=== PATIENT | male | born 1950 | race Caucasian/White ===

== ENCOUNTER → 2016-11-14 08:22 | Outpatient (CLI) | payer MEDICARE ==
[2013-11-20 09:04] VITALS: BMI 39.4
[~2016-11-14 08:22] MED LIST: ALDACTAZIDE 25/1 TAB PO; BAYER CHEWABLE81 MG PO; BETAPACE 80 MG80 MG PO; CARDIZEM CD180 MG PO; CARDURA8 MG PO; KEFLEX500 MG PO; LISINOPRIL10 MG PO; PLAVIX75 MG PO; PRINIVIL20 MG PO; XARELTO20 MG PO; ZOCOR20 MG PO
--- NOTE | 2016-11-23 12:47 | EC ---
PATIENT:WAYNE GUTIERREZ SR DATE OF SERVICE: 11/14/16 SEX: M MEDICAL RECORD: [id number] DATE OF : 52 LOCATION[facility] AGE OF PATIENT: 66 ADMISSION DATE: 11/14/16 REFERRING PHYSICIAN: INTERPRETING PHYSICIAN: TRISHA KAUR MD ECHOCARDIOGRAM REPORT ECHO CHARGES 4 ECHO COMPLETE CLINICAL DIAGNOSIS: CHF/CAD/AFIB/HTN/CHEST PAIN ECHOCARDIOGRAPHIC MEASUREMENTS (adult normal given) AC root (d.<3.7cm) 3.8 cm LV Septum d (<1.2 cm> 1.4 cm Valve Excursion 1.7 cm LV Septum (systole) 1.6 cm Left Atria (s.<4.0cm> 4.9 cm LVPW d(<1.2cm) 1.4 cm RV (d.<2.3cm) 5.1 cm LVPW (sytole) 1.75 cm LV diastole(<5.6CM) 5.8 cm MV E-F(>70mm/sec) cm LV systole 4.0 cm LVOT Diameter 1.8 cm MV exc.(>10mm) 1.8 cm Est.ejection fraction (50-75%) % Pericardial Effusion N DOPPLER: LVIT cm/sec A 56.0 cm/sec E 96.0 cm/sec LA cm/sec RVSP 40 mmHg LVOT 103 cm/sec AOP1/2T m/s Asc. Ao 151 cm/sec RVOT 92 cm/sec RA cm/sec PA 115 cm/sec AV Gradient Peak 9.10 mmHg AV Mean 5.44 mmHg AV Area 1.5 cm MV Gradient Peak 3.68 mmHg MV Mean 1.41 mmHg MV Area cm COMMENTS: Blunger Loader: Carola WINSTON Evp Sales: 4 Dr. Kaur TAPE# PACS DATE OF SERVICE: 11/14/2016 PROCEDURE: Transthoracic echocardiogram. FINDINGS: 1. The patient's left ventricle shows mild left ventricular hypertrophy. Inflow characteristics are normal. There are no obvious regional wall motion abnormalities. It is technically a difficult study, images were not real clear. 2. The right ventricle is significantly dilated, but appears to have normal function. ECHOCARDIOGRAM REPORT [id number] WAYNE GUTIERREZ SR 3. The aortic valve is sclerotic without any evidence of significant stenosis or significant regurgitation. 4. The mitral valve has mild mitral regurgitation. 5. The pulmonic valve is not well visualized. 6. The left atrium is severely dilated and in fact the patient's inflow characteristics are influenced by what appears possibly to be atrial flutter. 7. The tricuspid valve shows mild tricuspid regurgitation with an RVSP that is mildly elevated at 40 mmHg. 8. Right atrium is moderate to severely dilated. CONCLUSION: The patient has evidence of hypertensive heart disease with preserved LV systolic function elevations, pulmonary pressures in the mild category and evidence of dilatation of the right-sided structures. TRANSINT:[id number] Voice Confirmation ID: [id number] DOCUMENT ID: [id number] TRISHA KAUR MD at 1247 CC: [id number] DICTATION DATE: 11/14/16 1644 CLEAT LAYER: 11/14/16 2235 [facility] CLI 11/14/16 [facility] [address] [place] [address]
== END | disposition home or self-care (01) ==
LOC: D.ECHO 08:22
DX: I65.23 Occlusion and stenosis of bilateral carotid arteries (principal); I50.9 Heart failure, unspecified; I48.91 Unspecified atrial fibrillation; I10 Essential (primary) hypertension; R07.9 Chest pain, unspecified

== ENCOUNTER 2016-11-28 07:03 | Outpatient (CLI) | payer MEDICARE ==
--- NOTE | ~2016-11-28 | HEMODYNAMI ---
PATIENT:WAYNE GUTIERREZ SR MEDICAL RECORD: [id number] : 52 LOCATION:[facility] ADMISSION DATE: 11/28/16 Generatedon:11/28/201610:57 Patient name: WAYNE GUTIERREZ Patient #: [id number] SSN: : 1950 Date of study: 11/28/2016 Page: Of Hemodynamic Procedure Report Patient Data Patient Demographics Procedure consent was obtained First Name: WAYNE Gender: Male Last Name: BRENDA Suffix: [facility] Initial: A : 1950 Patient #: [id number] Age: 66 year(s) Race: Unknown Additional ID: [id number] Contact details [address]: [address] [place] [address] [place] State: [place] City: [place] Zip code: [address] Past Medical History Allergies: No known allergies Admission Admission Data Admission Date: 11/28/2016 Admission Time: 7:03 Admit Source: Other Lab Results Lab Result Date: 11/28/2016 Lab Result Time: 7:30 Biochemistry Name Units Result Min Max BUN mg/dl 21 --(----)-* 7 18 Creatinine mg/dl 1.2 --(---*)-- 0.6 1.3 CBC Name Units Result Min Max Hematocrit % 44.6 --(*---)-- 42 54 Hemoglobin g/dl 15.2 --(-*--)-- 13.5 17.5 Procedure Procedure Types Cath Procedure Diagnostic Procedure LHC LHC w/Coronaries Miscellaneous Procedures Moderate Sedation up to 45 minutes Procedure Description Procedure Date Procedure Date: 11/28/2016 Procedure Start Time: 10:08 Procedure End Time: 10:55 Procedure Staff Name Function James Jones MD Performing Physician Glendy Garcia RT Scrub Blade Wheeler RT Monitor Kim Ray RN Nurse Jose Miguel Avendaño RN Salvage Inspector [employer] Procedure Data Cath Procedure Fluoroscopy Diagnostic fluoroscopy Total fluoroscopy Time: time: 16.4 min 16.4 min Diagnostic fluoroscopy Total fluoroscopy dose: dose: 4237 mGy 4237 mGy Contrast Material Contrast Material Type Amount (ml) Isovue 300 280 Entry Location Entry Primary Successful Side Size Upsize Upsize Entry Closure Schumacher ccessful Closure Location (Fr) 1 (Fr) 2 (Fr) Remarks Device Remarks Radial Right 6 Fr Mechanical artery Short Compression Estimated blood loss: 10 ml Diagnostic catheters Device Type Used For End Catheter Placement Terumo 5Fr Ajith 110cm Procedure catheter Diagnostic Infinity 5Fr Procedure AR 2 MOD catheter Diagnostic Infinity 5Fr Procedure AR MOD Catheter Diagnostic Infinity 5Fr Procedure MPA-2 catheter Diagnostic Infinity 5Fr Procedure AL 1 catheter Diagnostic Infinity 5Fr Procedure Pigtail catheter Diagnostic Infinity 5Fr Procedure 3DRC catheter Procedure Complications No complications Procedure Medications Medication Administration Route Dosage Oxygen NC 2 l/min Lidocaine 2% added to field 20 Heparin Flush Bag added to field 2 bags (1000units/500ml NS) 0.9% NaCl I.V. 100 ml/hr Versed I.V. 2 mg Fentanyl I.V. 50 mcg Radial Cocktail I.A. 1 syringe (Verapomil 2mg/Nitro 400mcg/Heparin 1500units) 0.9% NaCl I.V. bolus 500 ml Solumedrol I.V. 125 mg Heparin Bolus I.V. 2000 units Heparin Bolus I.V. 3000 units Hemodynamics Rest HGB: 15.2 (g/dl) Heart Rate: 69 (bpm) Pressure Samples Time Site Value (mmHg) Purpose Heart Use Rate(bpm) 10:11 LV 90/-4,9 EDP 64 10:11 AO (59) Pullback 72 10:11 LV 77/5,9 Pullback 72 Gradients Valve Time Site 1 Site Mean SEP/DFP Peak To Heart Use 2 (mmHg) (sec/min) Peak Rate (mmHg) (bpm) Aortic 10:11 LV AO 4 9 72 77/5,9 (59) Calculations Valve P-P Mean Valve Index Valve Source Name Gradient Area Flow (cm2) Aortic 4 4 Snapshots Pre Cath Intra NCS Post Cath Vital Signs Time Heart Resp SPO2 etCO2 NIBP Rhythm Pain Sedation Rate (ipm) (%) (mmHg) (mmHg) Status Level (bpm) 9:54:37 65 17 100 37.1 130/77(88) A-Fib 0 (11) 10(A) , No pain 9:58:53 58 31 100 34.9 102/70(92) A-Fib 0 (11) 10(A) , No pain 10:03:03 59 13 100 37.1 114/83(96) A-Fib 0 (11) 10(A) , No pain 10:07:29 69 16 100 36.4 126/71(89) A-Fib 0 (11) 10(A) , No pain 10:11:49 72 24 95 40.9 94/53(75) A-Fib 0 (11) 10(A) , No pain 10:16:03 66 18 96 45.5 90/62(69) A-Fib 0 (11) 10(A) , No pain 10:20:15 67 16 97 46.9 101/67(78) A-Fib 0 (11) 10(A) , No pain 10:24:33 62 18 95 45.5 105/60(74) A-Fib 0 (11) 10(A) , No pain 10:28:53 64 18 98 37.1 106/59(85) A-Fib 0 (11) 10(A) , No pain 10:33:09 60 21 94 35.6 101/63(82) A-Fib 0 (11) 10(A) , No pain 10:37:23 68 20 96 39.4 110/69(82) A-Fib 0 (11) 10(A) , No pain 10:41:43 60 23 95 34.1 112/64(85) A-Fib 0 (11) 10(A) , No pain 10:46:03 59 19 96 44 112/63(80) A-Fib 0 (11) 10(A) , No pain 10:50:21 56 19 96 37.1 110/72(92) A-Fib 0 (11) 10(A) , No pain 10:54:36 60 17 98 37.9 116/81(93) A-Fib 0 (11) 10(A) , No pain Medications Time Medication Route Dose Verified Delivered Reason Note s Effectiveness by by 9:53:34 Oxygen NC 2 l/min James Buffie used for Jenny Ray ui programmer 9:53:44 Lidocaine 2% added 20ml James James for local to vial Jenny Jones MD anesthetic field 9:53:50 Heparin Flush added 2 bags James James used for Bag to Jenny Jones MD procedure (1000units/500ml field NS) 9:54:02 0.9% NaCl I.V. 100 James Buffie Per physician ml/hr Jenny Ray RN, MD 10:08:23 Versed I.V. 2 mg Jaems Buffie for sedation Jenny Ray RN, MD 10:08:31 Fentanyl I.V. 50 mcg James Buffie for sedation Jenny Ray RN, MD 10:09:35 Radial Cocktail I.A. 1 James James for (Verapomil syringe Jenny Jones MD vasodilation 2mg/Nitro MD 400mcg/Heparin 1500units) 10:14:13 0.9% NaCl I.V. 500 ml James Buffie Per physician bolus Jenny Ray RN, MD 10:22:25 Solumedrol I.V. 125 mg James Buffie Per physician pt Jenny Ray RN states MD feels hot, no itching or oral swelling noted. pt states hot natured. 10:37:36 Heparin Bolus I.V. 2000 James Buffie for veri fied units Jenny Ray RN anticoagulation with dr MD jones. 10:38:33 Heparin Bolus I.V. 3000 James Buffie for veri fied units Jenny Ray RN anticoagulation with dr MD jones. Procedure Log Time Note 9:15:11 Jose Miguel Avendaño RN sent for patient. Start room use. 9:43:13 Informed consent obtained and on chart 9:43:33 Admit Source: Other 9:43:57 Diagnostic Cath status Elective 9:44:18 Time tracking: Regular hours 9:44:22 Plan of Care:Hemodynamics will remain stable., Cardiac rhythm will remain stable., Comfort level will be maintained., Respiratory function will remain adequate., Patient/ family verbilizes understanding of procedure., Procedure tolerated without complication., Recovers from procedure without complications.. 9:44:38 Patient received from Pre/Post Procedure Room to CCL 2 Alert and oriented. Tansferred to table in Supine position. 9:44:39 Warm blankets applied, and edda hugger turned on for patient comfort. 9:44:40 Correct patient and procedure confirmed by team. 9:44:44 ECG and BP/O2 sat monitors applied to patient. 9:45:02 H&P Date Dictated: 11/22/2016 Within 30 days and on chart., H&P Addendum completed by physician on day of procedure. (MUST COMPLETE FOR ALL OUTPATIENTS). 9:45:03 Pre-procedure instructions explained to patient. 9:45:03 Pre-op teaching completed and patient verbalized understanding. 9:45:04 Family in waiting room. 9:45:06 Patient NPO since Midnight. 9:45:12 Patient allergic to No known allergies 9:53:20 Vital chart was started 9:53:34 Oxygen 2 l/min NC was administered by Kim Ray RN; used for procedure; 9:53:44 Lidocaine 2% 20ml vial added to field was administered by James Jones MD; for local anesthetic; 9:53:50 Heparin Flush Bag (1000units/500ml NS) 2 bags added to field was administered by James Jones MD; used for procedure; 9:54:02 0.9% NaCl 100 ml/hr I.V. was administered by Kim Ray RN; Per physician; 9:55:49 Baseline sample Acquired. 9:55:52 Rhythm: atrial fibrillation 9:55:53 Full Disclosure recording started 9:56:45 Is patient on blood thinner?Yes 9:56:47 ACC The patient was administered the following blood thiners within the last 24 hours: ACCPlavix 9:56:48 Patient diabetic? No. 9:56:52 Previous problem with sedation/anesthesia? No ? 9:56:52 Snore? Yes 9:56:53 Sleep apnea? Yes 9:56:54 Deviated septum? No 9:56:55 Opens mouth fully? Yes 9:56:56 Sticks out tongue? Yes 9:56:57 Airway obstruction? No ? 9:56:58 Dentures? No ? 9:57:00 Modified Sanju's test Ulnar < 7 seconds 9:57:02 Patient pain scale 0/10 ?. 9:57:14 IV patent on arrival in left wrist with 0.9% NaCl at [facility]. 9:57:42 Lab Result : BUN 21 mg/dl 9:57:42 Lab Result : Creatinine 1.2 mg/dl 9:57:42 Lab Result : Hemoglobin 15.2 g/dl 9:57:42 Lab Result : Hematocrit 44.6 % 9:57:44 Lab results completed and on chart. 9:57:46 Right Radial & Right Groin area was prepped with chlora-prep and draped in sterile fashion 9:57:47 Alarms reviewed by R. N. 9:57:47 Sharps counted by scrub and verified by R.N. 9:57:51 Use device set Radial Dx 9:57:52 Tegaderm 4 x 4 opened to sterile field. 9:57:52 MBrace Wrist Support opened to sterile field. 9:57:53 Acist Manifold opened to sterile field. 9:57:54 Acist Hand Control opened to sterile field. 9:57:55 Acist Syringe opened to sterile field. 9:57:55 Medline Cath Pack opened to sterile field. 9:57:55 Bag Decanter opened to sterile field. 9:57:56 Terumo 6Fr Slender Glidesheath opened to sterile field. 9:57:56 St Lester 260cm J .035 wire opened to sterile field. 10:03:43 Physician arrived 10:03:43 --------ALL STOP TIME OUT------ 10:03:44 Final Timeout: patient, procedure, and site verified with staff and physician. All members of the team are in agreement. 10:03:45 Right Radial & Right Groin site verified by team. 10:03:47 Physical assessment completed. ASA score P 2 - A patient with mild systemic disease as per James Jones MD. 10:03:50 Sedation plan: IV Moderate Sedation Versed, Fentanyl 10:03:53 Zero performed for pressure channel P1 10:06:35 Zero performed for pressure channel P1 10:08:22 Procedure started. 10:08:23 Versed 2 mg I.V. was administered by Kim Ray RN; for sedation; 10:08:27 Local anesthetic to right radial artery with Lidocaine 2% by James Jones MD.INITIAL ACCESS ONLY 10:08:31 Fentanyl 50 mcg I.V. was administered by Kim Ray RN; for sedation; 10:08:35 A 6 Fr Short sheath was inserted into the Right Radial artery 10:08:50 A Terumo 5Fr Ajith 110cm catheter was advanced over the wire and used for Procedure. 10:09:35 Radial Cocktail (Verapomil 2mg/Nitro 400mcg/Heparin 1500units) 1 syringe I.A. was administered by James Jones MD; for vasodilation; 10:11:38 LV gram done using ACKERMAN 10::40 Injector settings: Ml/sec: 5, Volume: 15, 10:11:59 EF : 55 % 10:13:40 LCA angiography performed. 10:14:13 0.9% NaCl 500 ml I.V. bolus was administered by Kim Ray RN; Per physician; 10:18:40 Catheter exchanged over wire. 10:18:43 A Diagnostic Infinity 5Fr AR 2 MOD catheter was advanced over the wire and used for Procedure. 10:22:25 Solumedrol 125 mg I.V. was administered by Kim Ray RN; Per physician; pt states feels hot, no itching or oral swelling noted. pt states hot natured. 10:27:50 A Diagnostic Infinity 5Fr AR MOD Catheter was advanced over the wire and used for Procedure. 10:32:00 Catheter exchanged over wire. 10:33:16 A Diagnostic Infinity 5Fr MPA-2 catheter was advanced over the wire and used for Procedure. 10:36:56 Catheter exchanged over wire. 10:37:16 A Diagnostic Infinity 5Fr AL 1 catheter was advanced over the wire and used for Procedure. 10:37:36 Heparin Bolus 2000 units I.V. was administered by Kim Ray RN; for anticoagulation; verified with dr jones. 10:38:33 Heparin Bolus 3000 units I.V. was administered by Kim Ray RN; for anticoagulation; verified with dr jones. 10:41:13 Catheter exchanged over wire. 10:41:25 A Diagnostic Infinity 5Fr Pigtail catheter was advanced over the wire and used for Procedure. 10:42:35 Aortic Root visualized 10:46:52 Catheter exchanged over wire. 10:47:37 A Diagnostic Infinity 5Fr 3DRC catheter was advanced over the wire and used for Procedure. 10:51:32 RCA angiography performed. 10:51:46 Catheter removed. 10:52:03 Terumo TR Band Large opened to sterile field. 10:52:10 Sheath removed intact; hemostasis achieved with Mechanical Compression to the Right Radial artery. 10:52:15 Procedure ended.(Physican Out) 10:53:39 Fluoroscopy time 16.40 minutes. 10:53:48 Flurop Dose total: 4237 10:53:48 Fluoroscopy dose: 4237 mGy 10:54:49 Contrast amount:Isovue 300 280ml. 10:54:50 Sharps counted by scrub and verified by R.N. 10:54:53 TR band inflated with 12cc of air. 10:54:56 Insertion/operative site no bleeding no hematoma. 10:54:58 Post Procedure Pulses reassessed and unchanged 10:54:59 Post-procedure physical assessment completed. ASA score P 2 - A patient with mild systemic disease as per James Jones MD. 10:55:01 Post procedure rhythm: unchanged. 10:55:04 Estimated blood loss: 10 ml 10:55:10 Post procedure instruction explained to patient.Patient verbalizes understanding. 10:55:10 Patient needs reinforcement of post procedure teaching. 10:55:20 Procedure type changed to Cath procedure, Diagnostic procedure, LHC, LHC w/Coronaries, Miscellaneous Procedures, Moderate Sedation up to 45 minutes 10:55:39 Procedure and supply charges have been captured, reviewed, submitted and are correct. 10:55:41 Procedure Complication : No complications 10:55:42 Vital chart was stopped 10:55:42 See physician's report for complete and final results. 10:55:44 Report given to Pre/Post Procedure Room. 10:55:45 Patient transfered to Pre/Post Procedure Room with Stretcher. 10:55:47 Procedure ended. 10:55:47 Full Disclosure recording stopped 10:55:51 End room use (Document Last) Device Usage Item Name Manufacture Quantity Catalog Hospital Part Current Minimal Lot# / Number Charge Number Stock Stock Serial# Code Tegaderm 4 1 1626W [id number] 698248 244389 5 x 4 MBrace Advanced 1 140-0250-00 053660 07986 075345 5 Wrist Vascular Support Dynamics Acist Acist 1 17618 622397 661982 250223 5 Manifold Medical Systems Inc Acist Hand Acist 1 83663 224875 224751 089636 5 Control Medical Systems Inc Acist Acist 1 48819 462420 207999 788471 20 Syringe Medical Systems Inc Medline Cardinal 1 [id number] 444393 92705 119096 5 Cath Pack Health Bag Microtek 1 2002S 5934079 89594 424815 5 Decanter Medical Inc. Terumo 6Fr Terumo 1 [id number] 895223 909470 865381 [address] St Lester 1 844196 982378 123421 552199 30 260cm J .035 wire Terumo 5Fr Terumo 1 17-3718 193242 855558 506110 5 Ajith 110cm catheter Diagnostic Cardinal 1 [id number] 307480 140371 287091 20 [facility] 5Fr AR 2 MOD catheter Diagnostic Cardinal 1 [id number] 680057 359546 045469 15 [facility] 5Fr AR MOD Catheter Diagnostic Cardinal 1 [id number] 151890 331416 459640 5 [facility] 5Fr MPA-2 catheter Diagnostic Cardinal 1 536409N 677866 217078 528416 15 [facility] 5Fr AL 1 catheter Diagnostic Cardinal 1 [id number] 445520 591494 371516 5 [facility] 5Fr Pigtail catheter Diagnostic Cardinal 1 [id number] 659169 942797 580252 9 [facility] 5Fr 3DRC catheter Terumo TR Terumo 1 [id number] 737452 711160 473946 40 Band Large Signature Audit [place] Stage Time Signature Unsigned Intra-Procedure 11/28/2016 Blade Wheeler 10:57:46 AM RT(R) Signatures Monitor : Blade Wheeler RT Signature : Date : Time : [place] [id number] [facility] [place] [address]
[~2016-11-28 07:03] MED LIST changes: -ALDACTAZIDE 25/1 TAB PO; -BAYER CHEWABLE81 MG PO; -KEFLEX500 MG PO; -PLAVIX75 MG PO; -PRINIVIL20 MG PO
[2016-11-28] MEDS ORDERED: PRINIVIL20 MG PO (07:22)
[2016-11-28] MEDS ORDERED: ALDACTAZIDE 25/1 TAB PO (07:23)
[2016-11-28 07:34] VITALS: BP 134/79
[2016-11-28 07:54] LABS: BASOPHILS 0.3 % (0-2); EOSINOPHILS 1.4 % (0-7); HEMATOCRIT 44.6 % (42.0-54.0); HEMOGLOBIN 15.2 g/dL (13.5-17.5); IMMATURE GRANULOCYTES 0.8 % (0-5); MCH 32.5 pg (26.0-34.0); MCHC 34.1 g/dL (31.0-37.0); MCV 95.3 fL (80.0-100.0); MONOCYTES 12.8 % (2-11); NEUTROPHILS 65.7 % (40-80); PLATELET COUNT 185 10x3/uL (130-400); RBC 4.68 10x6/uL (4.20-6.10); WBC 6.6 10x3/uL (4.8-10.8)
[2016-11-28 08:04] LABS: ANION GAP 13.4 mmol/L (8-16); CARBON DIOXIDE 27.3 mmol/L (21.0-32.0); CREATININE - SERUM 1.2 mg/dL (0.6-1.3); POTASSIUM - SERUM 4.7 mmol/L (3.5-5.1)
--- NOTE | 2016-11-28 11:08 | NUR ---
1108 RECEIVED PT FROM [facility]. PT IS ALERT. DENIES ANY C/O PAIN OR NAUSEA. ATRIAL FIBRILLATION WITH RATE 38-62. DR KAUR HERE AT BEDSIDE, TALKING WITH PT ABOUT FUTURE PACEMAKER PLACEMENT. RR IS EVEN AND UNLABORED ON O2 AT 2 LPM VIA NC. IV PATENT. TR BAND TO RIGHT WRIST IS CDI, NO BLEEDING OR HEMATOMA NOTED. FINGERS WARM, CAP REFILL IS BRISK, PULSES PALPABLE. NO FAMILY AT BEDSIDE, CALL LIGHT IN REACH.
--- NOTE | 2016-11-28 11:20 | NUR ---
1120 TR BAND CDI, NO BLEEDING OR HEMATOMA NOTED. FINGERS WARM, CAP REFILL IS BRISK. ATRIAL FIBRILLATION WITH RATE 42-58. PT DENIES ANY C/O CHEST DISCOMFORT. IV PATENT. OFFERED PO FLUIDS AND FOOD, PT REFUSES AT THIS TIME. PT DOES NOT HAVE A GIFT CONSULTANT HOME, STATES PLANNED TO DRIVE HIMSELF HOME AFTER PROCEDURE. [facility] WAS INSTRUCTED HE WOULD NEED A GIFT CONSULTANT AFTER PROCEDURE BUT [facility] DOES NOT HAVE ANY FAMILY OR FRIENDS HE CAN CALL. INSTRUCTED PT WE COULD NOT RELEASE HIM FOR DRIVING TODAY DUE TO THE MEDICATIONS HE HAS RECEIVED. PT STATES THAT IS 'THE ONLY OPTION, I HAVE NO WAY TO GET HOME TODAY.' PAGED DR KAUR WHO STATES PT CAN BE ADMITTED FOR OBSERVATION, FLUIDS AND RECHECK BMP IN THE AM.
--- NOTE | 2016-11-28 11:40 | NUR ---
1140 PT DENIES ANY C/O. TR BAND IS CDI, NO BLEEDING OR HEMATOMA NOTED. ATRIAL FIBRILLATION ON MONITOR, RATE 58. DENIES ANY C/O CHEST PAIN.
--- NOTE | 2016-11-28 12:07 | NUR ---
1200 PT DENIES ANY C/O PAIN OR NAUSEA. TR BAND IS CDI, NO BLEEDING OR HEMATOMA NOTED. A-FIB WITH RATE OF 52. PT NOW STATES HE WILL SIGN OUT AMA IF NEEDED BUT WILL NOT SPEND THE NIGHT IN THE HOSPITAL. STATES HE FEELS 'FINE TO DRIVE MYSELF HOME. NO REASON WHY I CANNOT DRIVE HOME.' REVIEWED AGAIN WITH PT THAT WE CANNOT RELEASE HIM TO DRIVE HIMSELF HOME HE IS UNDER THE INFLUENCE OF THE MEDICATIONS HE RECIEVED FOR THE PROCEDURE AND IS NOT SAFE FOR DRIVING. PT THEN STATES HE WILL TAKE A CAB HOME.
--- NOTE | 2016-11-28 12:21 | NUR ---
1210 DR KAUR PAGED AND INFORMED HIM PT REFUSES ADMISSION TO THE HOSPITAL AND PT WILL USE A CAB FOR TRANSPORTATION HOME TODAY. DR KAUR STATES PT CAN BE DC'D TO HOME AT 2 PM, PT TO FOLLOW UP WITH DR KAUR IN THE OFFICE ON SUNDAY.
--- NOTE | 2016-11-28 12:33 | NUR ---
1230 PT VOIDED 450 CC CLEAR YELLOW URINE USING URINAL. DENIES ANY C/O AT THIS TIME. TR BAND IS CDI, NO BLEEDING OR HEMATOMA NOTED. FINGERS WARM, CAP REFILL IS BRISK. IV PATENT. PT REFUSES PO FLUIDS/ SANDWICH AT THIS TIME.
--- NOTE | 2016-11-28 12:36 | NUR ---
1235 3 CC OF AIR REMOVED FROM TR BAND WITH NO BLEEDING OR HEMATOMA NOTED.
--- NOTE | 2016-11-28 13:20 | NUR ---
1320 ALL AIR HAS BEEN REMOVED FROM TR BAND WITH NO BLEEDING OR HEMATOMA NOTED. PT DENIES ANY C/O AT THIS TIME.
--- NOTE | 2016-11-28 13:50 | NUR ---
1350 2X2 AND TEGADERM REMAIN CDI TO RIGHT WRIST WITH NO BLEEDING OR HEMATOMA NOTED. WRIST IMMOBILIZER IN PLACE. IV DC'D WITH CATH INTACT. ASSISTED PT WITH DRESSING FOR DC TO HOME. DC INSTRUCTIONS HAVE BEEN REVIEWED WITH PT WHO VERBALIZES UNDERSTANDING.
--- NOTE | 2016-11-28 16:33 | NUR ---
1410 DRESSING TO RIGHT WRIST REMAINS CDI. PT DENIES ANY C/O PAIN OR NAUSEA. PT ESCORTED TO CAB VIA WC BY NURSE, REINFORCED INSTRUCTION OF NO DRIVING FOR 24 HOURS, PT STATES 'YES, I KNOW'. PT DC'D TO HOME VIA CAB.
== END 2016-11-28 14:10 | disposition home or self-care (01) ==
LOC: D.CATH 07:03
PROVIDERS: Internal Medicine Cardiovascular Disease
DX: I25.119 Atherosclerotic heart disease of native coronary artery with unspecified angina pectoris (principal); R07.9 Chest pain, unspecified; R53.83 Other fatigue; I42.9 Cardiomyopathy, unspecified; R94.39 Abnormal result of other cardiovascular function study; Z01.812 Encounter for preprocedural laboratory examination

== ENCOUNTER 2016-12-19 06:38 | Outpatient (CLI) | payer MEDICARE ==
--- NOTE | ~2016-12-19 | HEMODYNAMI ---
PATIENT:WAYNE GUTIERREZ SR MEDICAL RECORD: [id number] : 52 LOCATION:[facility] ADMISSION DATE: 12/19/16 Generatedon:12/19/20169:56 Patient name: WAYNE GUTIERREZ Patient #: [id number] : 1950 Date of study: 12/19/2016 Page: Of Hemodynamic Procedure Report Patient Data Patient Demographics Procedure consent was obtained First Name: WAYNE Gender: Male Last Name: BRENDA Suffix: [facility] Initial: A : 1950 Patient #: [id number] Age: 66 year(s) Race: SSN: [id number] Additional ID: [id number] Contact details Address: [address] [place] [address] [place] State: [place] City: [place] Zip code: [address] Past Medical History Allergies: No known allergies Admission Admission Data Admission Date: 12/19/2016 Admission Time: 6:38 Arrival Date: 12/19/2016 Arrival Time: 9:00 Admit Source: Other Insurance Payor: Medicare Height (in.): 72 BSA: 2.51 (m2) Height (cm.): 182.88 BMI: 39.74 (kg/m2) Weight (lbs.): 293 Weight (kg.): 132.9 Lab Results Lab Result Date: 12/19/2016 Lab Result Time: 0:00 Biochemistry Name Units Result Min Max BUN mg/dl 27 --(----)-* 7 18 Creatinine mg/dl 1.1 --(--*-)-- 0.6 1.3 CBC Name Units Result Min Max Hemoglobin g/dl 14.1 --(*---)-- 13.5 17.5 Procedure Procedure Types Cath Procedure PCI Procedure Coronary Stent Initial Miscellaneous Procedures Moderate Sedation up to 45 minutes Procedure Description Procedure Date Procedure Date: 12/19/2016 Procedure Start Time: 9:36 Procedure End Time: 9:53 Procedure Staff Name Function James Alvarado MD Performing Physician Kim Ray RN Nurse Glendy Garcia RT Monitor Hali Dunbar RT Scrub Procedure Data Cath Procedure Fluoroscopy Diagnostic fluoroscopy Total fluoroscopy Time: 3.7 time: 3.7 min min Diagnostic fluoroscopy Total fluoroscopy dose: dose: 1160 mGy 1160 mGy Contrast Material Contrast Material Type Amount (ml) Isovue 300 60 Entry Location Entry Primary Successful Side Size Upsize Upsize Entry Closure Succes sful Closure Location (Fr) 1 (Fr) 2 (Fr) Remarks Device Remarks Femoral Right 6 Fr Exoseal artery Short Estimated blood loss: 5 ml Procedure Complications No complications Procedure Medications Medication Administration Route Dosage Oxygen NC 2 l/min Lidocaine 2% added to field 20 Heparin Flush Bag added to field 2 bags (1000units/500ml NS) 0.9% NaCl I.V. 100 ml/hr Versed I.V. 2 mg Fentanyl I.V. 50 mcg Angiomax (bolus) I.V. 19 ml Angiomax Drip I.V. drip 44.5 ml/hr (250mg/50ml NS) (Standard) Angiomax Drip 44.5 ml/hr (250mg/50ml NS) (Standard) Hemodynamics Rest BSA: 2.51 (m2) HGB: 14.1 (g/dl) O2 Consumption: Estimated: 311.3 (ml/min) O2 Con sumption indexed: Estimated:124.02 (ml/min/m) Heart Rate: 90 (bpm) Snapshots Pre Cath Intra NCS Post Cath Vital Signs Time Heart Resp SPO2 etCO2 NIBP (mmHg) Rhythm Pain Sedation Rate (ipm) (%) (mmHg) Status Level (bpm) 9:03:39 88 22 99 0 120/82(91) A-Fib 0 (11) 10(A) , No pain 9:09:08 84 20 98 0 120/69(93) A-Fib 0 (11) 10(A) , No pain 9:13:18 89 16 99 36.8 119/78(90) A-Fib 0 (11) 10(A) , No pain 9:17:36 82 21 100 33.1 116/71(100) A-Fib 0 (11) 10(A) , No pain 9:21:54 81 23 99 32.3 120/74(93) A-Fib 0 (11) 10(A) , No pain 9:26:08 86 22 100 23.3 99/75(86) A-Fib 0 (11) 10(A) , No pain 9:30:25 85 24 100 27.1 107/57(80) A-Fib 0 (11) 10(A) , No pain 9:34:38 79 16 100 32.4 118/76(104) A-Fib 0 (11) 10(A) , No pain 9:38:57 93 24 100 26.3 110/75(86) A-Fib 0 (11) 10(A) , No pain 9:43:06 83 20 98 34.6 106/74(80) A-Fib 0 (11) 10(A) , No pain 9:47:23 83 26 100 32.4 111/62(82) A-Fib 0 (11) 10(A) , No pain 9:51:39 88 18 99 27.8 112/69(83) A-Fib 0 (11) 10(A) , No pain Medications Time Medication Route Dose Verified Delivered Reason Notes Effectiveness by by 9:04:15 Oxygen NC 2 James Buffie used for l/min Jenny Ray RN procedure 9:04:22 Lidocaine 2% added to field 20ml James James for local vial Jenny Alvarado MD anesthetic 9:04:28 Heparin Flush added to field 2 James James used for Bag bags Jenny Alvarado MD procedure (1000units/500ml NS) 9:04:37 0.9% NaCl I.V. 100 James Buffie Per physicia n ml/hr Jenny Ray RN, MD 9:37:40 Versed I.V. 2 mg James Buffie for sedation Jenny Ray RN, MD 9:37:46 Fentanyl I.V. 50 James Buffie for sedation mcg Jenny Ray RN, MD 9:41:30 Angiomax (bolus) I.V. 19 ml James Buffie for Jenny Ray RN anticoagulation 9:42:39 Angiomax Drip I.V. drip 44.5 James Buffie for (250mg/50ml NS) ml/hr Jenny Ray RN anticoagulation (Standard) 9:51:57 Angiomax Drip I.V. 44.5 James Buffie for (250mg/50ml NS) drip-discontinued ml/hr Jenny Ray RN anticoagulation (Standard) Procedure Log Time Note 8:52:52 Admit Source: Other 8:52:58 Patient Height : 72 inches 8:53:05 Patient Weight : 293 lbs 8:53:25 Diagnostic Cath status Elective 8:53:27 Kim Ray RN sent for patient. Start room use. 8:53:28 Time tracking: Regular hours 8:53:33 Plan of Care:Hemodynamics will remain stable., Cardiac rhythm will remain stable., Comfort level will be maintained., Respiratory function will remain adequate., Patient/ family verbilizes understanding of procedure., Procedure tolerated without complication., Recovers from procedure without complications.. 8:53:39 Patient received from Pre/Post Procedure Room to CCL 2 Alert and oriented. Tansferred to table in Supine position. 8:57:24 Warm blankets applied, and edda hugger turned on for patient comfort. 8:57:26 Correct patient and procedure confirmed by team. 8:57:27 Signed procedure consent form obtained from patient. 8:57:28 ECG and BP/O2 sat monitors applied to patient. 9:02:31 Vital chart was started 9:04:15 Oxygen 2 l/min NC was administered by Kim Ray RN; used for procedure; 9:04:22 Lidocaine 2% 20ml vial added to field was administered by James Alvarado MD; for local anesthetic; 9:04:28 Heparin Flush Bag (1000units/500ml NS) 2 bags added to field was administered by James Alvarado MD; used for procedure; 9:04:37 0.9% NaCl 100 ml/hr I.V. was administered by Kim Ray RN; Per physician; 9:06:01 Baseline sample Acquired. 9:06:09 Rhythm: sinus tachycardia 9:06:11 Full Disclosure recording started 9:07:23 H&P Date Dictated: 12/19/2016 Within 30 days and on chart., H&P Addendum completed by physician on day of procedure. (MUST COMPLETE FOR ALL OUTPATIENTS). 9:07:29 Pre-procedure instructions explained to patient. 9:07:30 Pre-op teaching completed and patient verbalized understanding. 9:07:32 Family unavailable. 9:07:33 Patient NPO since Midnight. 9:08:01 Is the patient allergic to Iodine/contrast media? No. 9:08:02 Was the patient premedicated? No 9:08:03 Is patient on blood thinner?Yes 9:08:06 ACC The patient was administered the following blood thiners within the last 24 hours: ACCPlavix 9:08:08 Patient diabetic? No. 9:08:11 Previous problem with sedation/anesthesia? No ? 9:08:13 Snore? Yes 9:08:14 Sleep apnea? Yes 9:08:14 Deviated septum? No 9:08:15 Opens mouth fully? Yes 9:08:16 Sticks out tongue? Yes 9:08:18 Airway obstruction? No ? 9:08:21 Dentures? No ? 9:08:25 Pre procedure: right dorsailis pedis pulse 2+ Normal; easily identifiable; not easily obliterated 9:08:27 Pre procedure: left dorsailis pedis pulse 2+ Normal; easily identifiable; not easily obliterated 9:08:38 Patient pain scale 0/10 ?. 9:08:46 IV patent on arrival in left forearm with 0.45%NaCl at [facility]. 9:11:45 Lab Result : BUN 27 mg/dl 9:11:45 Lab Result : Hemoglobin 14.1 g/dl 9:11:45 Lab Result : Creatinine 1.1 mg/dl 9:11:49 Lab results completed and on chart. 9:11:53 Right groin area was prepped with chlora-prep and draped in sterile fashion 9:11:53 Alarms reviewed by R. N. 9:11:54 Sharps counted by scrub and verified by R.N. 9:11:55 Physician arrived 9:11:55 Final Timeout: patient, procedure, and site verified with staff and physician. All members of the team are in agreement. 9:11:56 --------ALL STOP TIME OUT------ 9:11:58 Right groin site verified by team. 9:12:01 Physical assessment completed. ASA score P 2 - A patient with mild systemic disease as per James Alvarado MD. 9:12:05 Sedation plan: IV Moderate Sedation Versed, Fentanyl 9:14:01 Use device set Femoral PCI 9:14:02 Acist Syringe opened to sterile field. 9:14:03 Acist Hand Control opened to sterile field. 9:14:03 Bag Decanter opened to sterile field. 9:14:03 Medline Cath Pack opened to sterile field. 9:14:04 Terumo 6Fr Hereford Sheath opened to sterile field. 9:14:04 St Lester 260cm J .035 wire opened to sterile field. 9:14:05 Merit BasixCompak Inflation Kit opened to sterile field. 9:14:05 Acist Manifold opened to sterile field. 9:14:06 Tegaderm 4 x 4 opened to sterile field. 9:15:32 Arrival Date: 12/19/2016 9:00:00 AM 9:15:39 Insurance Payor : Medicare 9:25:52 Zero performed for pressure channel P1 9:33:30 Procedure started. 9:36:25 Local anesthetic to right femoral artery with Lidocaine 2% by James Alvarado MD.INITIAL ACCESS ONLY 9:36:34 A 6 Fr Short sheath was inserted into the Right Femoral artery 9:37:33 Pownal Sci Runway 6Fr ART 4.0 SH guide catheter opened to sterile field. 9:37:40 Versed 2 mg I.V. was administered by Kim Ray RN; for sedation; 9:37:46 Fentanyl 50 mcg I.V. was administered by Kim Ray RN; for sedation; 9:37:51 Pownal Sci PT Graphix J 182cm 0.014 guide wire opened to sterile field. 9:38:07 6 Fr art 4 guide catheter was inserted over the wire 9:39:47 pt graphix wire advanced. 9:40:01 Copilot Bleedback Control Valve opened to sterile field. 9:41:30 Angiomax (bolus) 19 ml I.V. was administered by Kim Ray RN; for anticoagulation; 9:41:48 Wire advanced across lesion. 9:42:39 Angiomax Drip (250mg/50ml NS) (Standard) 44.5 ml/hr I.V. drip was administered by Kim Ray RN; for anticoagulation; 9:48:46 Inflation Number: 1 A Marlborough RX 2.5 x 22 stent was prepped and advanced across the R PDA. The stent was deployed at 16 TAPAN for 0:10 (min:sec). 9:50:35 Stent catheter was removed intact over wire. 9:50:36 Wire removed. 9:50:36 Guide catheter removed. 9:50:44 Cordis 6Fr Exoseal opened to sterile field. 9:50:54 Sheath removed intact; hemostasis achieved with Exoseal to the Right Femoral artery. 9:50:55 Procedure ended.(Physican Out) 9:51:57 Angiomax Drip (250mg/50ml NS) (Standard) 44.5 ml/hr I.V. drip-discontinued was administered by Kim Ray RN; for anticoagulation; 9:52:04 Fluoroscopy time 03.70 minutes. 9:52:20 Fluoroscopy dose: 1160 mGy 9:52:20 Flurop Dose total: 1160 9:52:48 Contrast amount:Isovue 300 60ml. 9:52:50 Sharps counted by scrub and verified by R.N. 9:52:51 Insertion/operative site no bleeding no hematoma. 9:52:53 Post-op/insertion site Right Femoral artery dressed using a 4 x 4 and Tegaderm. 9:52:57 Post right femoral artery:stable 9:52:59 Post Procedure Pulses reassessed and unchanged 9:53:02 Post procedure rhythm: unchanged. 9:53:04 Estimated blood loss: 5 ml 9:53:06 Post procedure instruction explained to patient.Patient verbalizes understanding. 9:53:07 Patient needs reinforcement of post procedure teaching. 9:53:18 Procedure type changed to Cath procedure, PCI procedure, Coronary Stent Initial, Miscellaneous Procedures, Moderate Sedation up to 45 minutes 9:53:19 Procedure and supply charges have been captured, reviewed, submitted and are correct. 9:53:23 Procedure Complication : No complications 9:53:26 Vital chart was stopped 9:53:27 See physician's report for complete and final results. 9:53:35 Report given to Pre/Post Procedure Room. 9:53:39 Patient transfered to Pre/Post Procedure Room with Stretcher. 9:53:41 Procedure ended. 9:53:41 Full Disclosure recording stopped 9:53:48 ACC-PCI Only Patient was given prescriptions, or instructed by James Alvarado MD to start/continue the following medications upon discharge: Plavix 9:53:50 End room use (Document Last) Intervention Summary Intervention Notes Time ActionType Lesion and Equipment Action# Pressure Duration Attributes Used 9:48:46 Place stent R PDA Marlborough RX 1 16 00:10 2.5 x 22 stent Device Usage Item Name Manufacture Quantity Catalog Number Hospital Part Current Mini [facility] Lot# / Charge Number Stock Stock Serial# Code Acist Acist 1 31929 213131 874805 405364 20 Syringe Medical Systems Inc Acist Hand Acist 1 66929 334633 207348 027344 5 Control Medical Systems Inc Bag Microtek 1 2002S 757866 74291 780267 5 Decanter Medical Inc. Medline Cardinal 1 [id number] 885727 86830 461315 5 Cath Pack Health Terumo 6Fr Terumo 1 [id number] 234994 070969 235032 [address] St Lester 1 111593 951477 850740 292158 30 260cm J .035 wire Merit Merit 1 [id number] 094981 710770 703303 15 BasixCompak Medical Inflation Kit Acist Acist 1 87369 403624 571819 640093 5 Manifold Medical Systems Inc Tegaderm 4 3M 1 1626W 892876 505182 521566 5 x 4 Pownal Sci Pownal 1 [id number] 309422 510068 [address] 6[address] Scientific ART 4.0 SH guide catheter Pownal Sci Pownal 1 [id number] 343402 031468 681347 5 PT Graphix Scientific J 182cm 0.014 guide wire Copilot Saunders 1 [id number] 115787 452332 658937 5 Bleedback Vascular Control Valve Jd RX 2.5 Medtronic 1 [id number] 680607 1877938 988098 5 [id number] x 22 stent Cordis 6Fr Cardinal 1 EX600 086283 221314 [id number] [address] [place] [address] Signature Audit [place] Stage Time Signature Unsigned Intra-Procedure 12/19/2016 Glendy Garcia 9:56:32 AM RT(R) Signatures Monitor : Glendy Garcia RT Signature : Date : Time : [place] [address] [place] [address]
[~2016-12-19 06:38] MED LIST changes: +ALDACTAZIDE 25/1 TAB PO; +PRINIVIL20 MG PO
[2016-12-19] MEDS ORDERED: BAYER CHEWABLE81 MG PO (07:10)
[2016-12-19 07:16] VITALS: BP 114/74; BMI 38.0
[2016-12-19 07:32] LABS: BASOPHILS 0.4 % (0-2); EOSINOPHILS 1.1 % (0-7); HEMATOCRIT 41.2 % (42.0-54.0); HEMOGLOBIN 14.1 g/dL (13.5-17.5); IMMATURE GRANULOCYTES 0.4 % (0-5); LYMPHOCYTES 20.4 % (15-50); MCH 32.3 pg (26.0-34.0); MCHC 34.2 g/dL (31.0-37.0); MCV 94.5 fL (80.0-100.0); MEAN PLATELET VOLUME 10.6 fL (7.4-10.4); MONOCYTES 14.5 % (2-11); NEUTROPHILS 63.2 % (40-80); PLATELET COUNT 175 10x3/uL (130-400); RBC 4.36 10x6/uL (4.20-6.10); RDW 12.5 % (11.5-14.5); WBC 7.2 10x3/uL (4.8-10.8)
[2016-12-19 07:50] LABS: ANION GAP 15.6 mmol/L (8-16); CALCIUM 9.3 mg/dL (8.5-10.1); CARBON DIOXIDE 24.5 mmol/L (21.0-32.0); CREATININE - SERUM 1.1 mg/dL (0.6-1.3); POTASSIUM - SERUM 5.1 mmol/L (3.5-5.1)
--- NOTE | 2016-12-19 10:17 | NUR ---
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 INSTRUCTED PATIENT TO KEEP HEAD FLAT ON PILLOW WITH RLE STRAIGHT.
--- NOTE | 2016-12-19 10:39 | NUR ---
VSS WITH CHEST PAIN DENIED NO DISTRESS NOTED AT THIS TIME. 6 FR EXOSEAL R/GROIN CDI NO BLEEDING NO HEAMTOMA NOTED
--- NOTE | 2016-12-19 10:54 | NUR ---
R/GROIN CDI NO BLEEDING NO HEMATOMA NOTED. VSS WITH NEEDS DENIED
--- NOTE | 2016-12-19 11:11 | NUR ---
RESTING QUIETLY NO DISTRESS NOTED NO CHANGE IN ASSESSMENT
--- NOTE | 2016-12-19 11:44 | NUR ---
R/GROIN CDI NO BLEEDING NOTED. PATIENT IN A FIB AT 86 WITH CHEST PAIN DENIED. VOIDS 400 CC URINE TO COLLECTON
--- NOTE | 2016-12-19 12:30 | NUR ---
1230 VSS WITH CHEST PAIN DENIED. R/GROIN CDI NO BLEEDING NOTED 1300 REPOSITIONED FOR COMFORT WITH PILLOW WITH SUPPORT BACK
--- NOTE | 2016-12-19 13:34 | NUR ---
REPOSITIONED TO SITTING WITH HOB UP 30 DEGREES FOR COMFORT. R/GROIN CDI NO BLEEDING NO HEMATOMA NOTED. VSS
--- NOTE | 2016-12-19 14:07 | NUR ---
RESTING QUIETLY WITH EYES CLOSED. NO DISTRESS NOTED R/GROIN REMAINS CDI NO BLEEDING NO HEMATOMA NOTED
--- NOTE | 2016-12-19 14:48 | NUR ---
PATIENT CONTINUES TO SLEEP WITH NO DISTRESS NOTED. VSS
--- NOTE | 2016-12-19 15:40 | NUR ---
BED REST COMPLETE WITH PATIENT REPOSITIONED TO SITTING WITH HOB UP 30 DEGREES. R/GROIN CDI NO BLEEDING NO HEMATOMA NOTED.
--- NOTE | 2016-12-19 16:45 | NUR ---
REPORT CALLED TO [facility] FOR TRANSPORT TO ROOM 2122
--- NOTE | 2016-12-19 17:01 | NUR ---
RECIVED TO ROOM 2125. PER WC FROM POST CATH. ADMIT ASSESSMENT PER RN. RT [facility] C/D
--- NOTE | 2016-12-19 17:03 | NUR ---
TRANSFER FROM [facility] BY W/C. CALL LIGHT IN REACH. WILL CONT. PLAN OF CARE.
--- NOTE | 2016-12-19 17:28 | NUR ---
WITHOUT CHANGES OR DISTRESS NOTED AT THIS TIME. DENIES NEEDS.
[2016-12-19 18:09] VITALS: BP 120/70; BMI 38.0
[2016-12-19 20:00] VITALS: BP 124/74
--- NOTE | 2016-12-19 21:40 | NUR ---
PT RESTING COMFORTABLY, EASILY ROUSABLE TO VERBAL STIMULI, DENIES ANY NEEDS. PT'S RIGHT GROIN HAS A DRESSING STILL INTACT, CLEAN AND DRY, NO EVIDENCE OF HEMATOMA AT THIS TIME, INSERTION SITE WARM AND SOFT. PEDAL PULSES INTACT, BLE WARM, COLOR WNL. PT STATES HE HAS CHRONIC A-FIB AND WAS TOLD ONCE HE NEEDED A PACEMAKER, BUT HAS NOT RECEIVED ONE. WILL CONTINUE TO MONITOR PT CLOSELY. BED LOW, CALL LIGHT IN REACH, SIDE RAILS X 2, HOB 20 DEGREES AT THIS TIME.
[2016-12-19 23:45] VITALS: BP 133/71
[2016-12-20 04:00] VITALS: BP 125/65
--- NOTE | 2016-12-20 05:58 | NUR ---
PT RESTING COMFORTABLY, NO NEEDS. CONTINUE TO MONITOR CLOSELY.
[2016-12-20] MEDS ORDERED: PLAVIX75 MG PO (07:38)
--- NOTE | 2016-12-20 07:50 | NUR ---
ASSESSMENT DONE. DENIES NEEDS.
[2016-12-20 08:00] VITALS: BP 107/64
--- NOTE | 2016-12-20 08:36 | NUR ---
RESTS IN BED WITHOUT NEEDS VOICED. CALL LIGHT IN REACH. WILL CONT. PLAN OF CARE.
--- NOTE | 2016-12-20 10:20 | NUR ---
DC GIVEN TO PT
--- NOTE | 2016-12-20 10:32 | NUR ---
DC HOME PER PERSONAL CAR
== END 2016-12-20 10:33 | disposition home or self-care (01) ==
LOC: D.CATH 06:38 → D.M2 16:46 → D.CATH 12-20 10:33
PROVIDERS: Internal Medicine Cardiovascular Disease
DX: I25.119 Atherosclerotic heart disease of native coronary artery with unspecified angina pectoris (principal); I48.91 Unspecified atrial fibrillation; Z79.82 Long term (current) use of aspirin; Z79.899 Other long term (current) drug therapy; Z01.812 Encounter for preprocedural laboratory examination

== ENCOUNTER 2017-01-26 07:32 | Outpatient (CLI) | payer MEDICARE ==
[~2017-01-26] VITALS: Ht 182.9 cm; Wt 127.0 kg
--- NOTE | ~2017-01-26 | HEMODYNAMI ---
PATIENT:WAYNE GUTIERREZ SR MEDICAL RECORD: [id number] : 52 LOCATION:[facility] ADMISSION DATE: 01/26/17 Generatedon:01/26/20179:31 Patient name: WAYNE GUTIERREZ Patient #: [id number] : 1950 Date of study: 01/26/2017 Page: Of Hemodynamic Procedure Report Patient Data Patient Demographics Procedure consent was obtained First Name: WAYNE Gender: Male Last Name: BRENDA Suffix: [facility] Initial: A : 1950 Patient #: [id number] Age: 66 year(s) Race: SSN: [id number] Additional ID: [id number] Contact details [address]: [address] [place] [address] [place] State: [place] City: [place] Zip code: [address] Past Medical History Allergies: No known allergies Admission Admission Data Admission Date: 01/26/2017 Admission Time: 7:32 Lab Results Lab Result Date: 01/26/2017 Lab Result Time: 7:40 Biochemistry Name Units Result Min Max BUN mg/dl 20 --(----)*- 7 18 Creatinine mg/dl 1.2 --(---*)-- 0.6 1.3 CBC Name Units Result Min Max Hematocrit % 42 --(*---)-- 42 54 Hemoglobin g/dl 14.1 --(*---)-- 13.5 17.5 Procedure Procedure Types Cath Procedure Diagnostic Procedure PPM/ICD PPM Dual Implant Miscellaneous Procedures Moderate Sedation up to 30 minutes Procedure Description Procedure Date Procedure Date: 01/26/2017 Procedure Start Time: 8:50 Procedure End Time: 9:29 Procedure Staff Name Function James Alvarado MD Performing Physician Kim Ray RN Nurse Eleanor Alvarado RT Scrub Blade Wheeler RT Monitor Procedure Data Cath Procedure Fluoroscopy Diagnostic fluoroscopy Total fluoroscopy Time: 3.9 time: 3.9 min min Diagnostic fluoroscopy Total fluoroscopy dose: dose: 150.14 mGy 150.14 mGy Contrast Material Contrast Material Type Amount (ml) Isovue 300 10 Estimated blood loss: 5 ml Procedure Complications No complications Procedure Medications Medication Administration Route Dosage 0.9% NaCl I.V. ml/hr Lidocaine 1% added to field 20 Ancef (1Gm/50ml NS) I.V.P.B 1 g Versed I.V. 2 mg Fentanyl I.V. 50 mcg Versed I.V. 2 mg Ancef Irrigation Topical 1 g (1gm/500ml NS) Hemodynamics Rest HGB: 14.1 (g/dl) Heart Rate: 86 (bpm) Snapshots Pre Cath Intra NCS Post Cath Vital Signs Time Heart Resp SPO2 etCO2 NIBP (mmHg) Rhythm Pain Sedation Rate (ipm) (%) (mmHg) Status Level (bpm) 8:29:39 89 15 98 0 123/81(102) A-Fib 0 (11) 10(A) , No pain 8:34:17 83 17 98 0 125/80(98) A-Fib 0 (11) 10(A) , No pain 8:38:49 92 17 98 0 114/85(98) A-Fib 0 (11) 10(A) , No pain 8:43:22 83 25 96 0 103/70(86) A-Fib 0 (11) 10(A) , No pain 8:47:48 81 18 95 0 106/77(91) A-Fib 0 (11) 10(A) , No pain 8:52:13 78 18 96 0 124/86(109) A-Fib 0 (11) 10(A) , No pain 8:56:49 91 24 94 0 121/82(91) A-Fib 0 (11) 10(A) , No pain 9:01:30 86 25 92 0 114/65(90) A-Fib 0 (11) 10(A) , No pain 9:05:58 98 22 94 0 126/80(94) A-Fib 0 (11) 10(A) , No pain 9:10:34 82 22 96 0 105/76(97) A-Fib 0 (11) 10(A) , No pain 9:14:57 86 16 97 0 117/82(95) NSR 0 (11) 10(A) , No pain 9:19:27 86 23 95 0 121/76(90) NSR 0 (11) 10(A) , No pain 9:23:59 79 21 98 0 115/75(95) NSR 0 (11) 10(A) , No pain 9:28:26 73 17 97 0 113/76(92) NSR 0 (11) 10(A) , No pain Medications Time Medication Route Dose Verified Delivered Reason Notes Effectiven ess by by 8:23:57 0.9% NaCl I.V. ml/hr James Buffie used for Jenny Ray drivematic machine operator 8:24:51 Lidocaine added 20ml James James used for 1% to vial Jenny Alvarado MD procedure field *2 8:26:23 Ancef I.V.P.B 1 g James Buffie Per (1Gm/50ml Jenny Ray RN protocol NS) 8:50:13 Versed I.V. 2 mg James Buffie for Jenny Ray RN sedation 8:50:24 Fentanyl I.V. 50 James Buffie for mcg Jenny Ray RN sedation 8:53:44 Versed I.V. 2 mg James Buffie for Jenny Ray RN sedation 8:54:09 Ancef Topical 1 g James Buffie used for Irrigation Jenny Ray drivematic machine operator (1gm/500ml NS) Procedure Log Time Note 7:58:33 Time tracking: Regular hours 7:58:37 Plan of Care:Hemodynamics will remain stable., Cardiac rhythm will remain stable., Comfort level will be maintained., Respiratory function will remain adequate., Patient/ family verbilizes understanding of procedure., Procedure tolerated without complication., Recovers from procedure without complications.. 8:15:35 Kim Ray RN sent for patient. Start room use. 8:23:57 0.9% NaCl ml/hr I.V. was administered by Kim Ray RN; used for procedure; 8:24:51 Lidocaine 1% 20ml vial *2 added to field was administered by James Alvarado MD; used for procedure; 8:25:43 Patient received from Pre/Post Procedure Room to CCL 3 Alert and oriented. Tansferred to table in Supine position. 8:25:48 Warm blankets applied, and edda hugger turned on for patient comfort. 8:25:49 Correct patient and procedure confirmed by team. 8:25:54 Signed procedure consent form obtained from patient. 8:25:55 ECG and BP/O2 sat monitors applied to patient. 8:26:04 H&P Date Dictated: 01/22/2017 Within 30 days and on chart., H&P Addendum completed by physician on day of procedure. (MUST COMPLETE FOR ALL OUTPATIENTS). 8:26:06 Pre-procedure instructions explained to patient. 8:26:06 Pre-op teaching completed and patient verbalized understanding. 8:26:08 Family in waiting room. 8:26:09 Patient NPO since Midnight. 8:26:18 Patient allergic to No known allergies 8:26:23 Ancef (1Gm/50ml NS) 1 g I.V.P.B was administered by Kim Ray RN; Per protocol; 8:26:24 Is the patient allergic to Iodine/contrast media? No. 8:27:14 Is patient on blood thinner?Yes 8:27:20 ACC The patient was administered the following blood thiners within the last 24 hours: ACCPlavix 8:27:56 Vital chart was started 8:28:00 Baseline sample Acquired. 8:28:07 Rhythm: atrial fibrillation 8:30:46 Patient diabetic? No. 8:30:48 Previous problem with sedation/anesthesia? No ? 8:30:49 Snore? Yes 8:30:50 Sleep apnea? Yes 8:30:51 Deviated septum? No 8:30:51 Opens mouth fully? Yes 8:30:52 Sticks out tongue? Yes 8:30:54 Airway obstruction? No ? 8:30:55 Dentures? No ? 8:30:58 Patient pain scale 0/10 ?. 8:31:04 IV patent on arrival in left antecubital with 0.9% NaCl at [facility]. 8:32:11 Lab Result : BUN 20 mg/dl 8:32:11 Lab Result : Hemoglobin 14.1 g/dl 8:32:11 Lab Result : Creatinine 1.2 mg/dl 8:32:11 Lab Result : Hematocrit 42 % 8:32:34 Lab results completed and on chart. 8:32:44 Medtronic electroplating sales representative Kodi Ventura present for procedure. 8:32:55 Use device set Pacemaker Set 8:32:58 Left chest area was prepped with chlora-prep and draped in sterile fashion 8:32:58 Immobilizer Extra Large opened to sterile field. 8:33:17 Peak PlasmaBlade 3.0S ([id number]) opened to sterile field. 8:33:22 Stapler Skin 35W Proximate Plus (PMW35) opened to sterile field. 8:33:41 Grounding pad site Right thigh. 8:33:42 Grounding pad site free from injury. 8:37:13 Physician arrived 8:37:13 --------ALL STOP TIME OUT------ 8:37:14 Final Timeout: patient, procedure, and site verified with staff and physician. All members of the team are in agreement. 8:37:17 Left chest site verified by team. 8:37:19 Physical assessment completed. ASA score P 2 - A patient with mild systemic disease as per James Alvarado MD. 8:37:23 Sedation plan: IV Moderate Sedation Medication:Versed, Fentanyl 8:38:05 Pre sharps counted by scrub and verified by RN: Sutures: 2 Sponges: 5 Stick needles: 4 Skin needles: 2 Blade: 1 Cautery: 1 8:39:39 2-0 Vicryl Plus [id number] opened to sterile field. 8:40:50 Medtronic 5076-52 PPM Lead opened to sterile field. 8:40:51 Medtronic 4074-58 PPM Lead opened to sterile field. 8:40:51 Medtronic Advisa MRI PPM Dual Generator [id number] opened to sterile field. 8:41:58 Alarms reviewed by R. N. 8:41:58 Sharps counted by scrub and verified by R.N. 8:44:25 MICROPUNCTURE 4FR Cook ([id number]) opened to sterile field. 8:44:26 MICROPUNCTURE 4FR Cook ([id number]) opened to sterile field. 8:49:30 STOPCOCK 3-Way Large Bore ([id number]) opened to sterile field. 8:50:13 Versed 2 mg I.V. was administered by Kim Ray RN; for sedation; 8:50:24 Fentanyl 50 mcg I.V. was administered by Kim Ray RN; for sedation; 8:50:45 Full Disclosure recording started 8:53:25 Procedure started. 8:53:44 Versed 2 mg I.V. was administered by Kim Ray RN; for sedation; 8:54:09 Ancef Irrigation (1gm/500ml NS) 1 g Topical was administered by Kim Ray RN; used for procedure; 8:54:37 Lidocane 2% was administered to the left subvclavicular area by James Alvarado MD. 8:54:51 Incision made to left subclavicular area. 8:58:03 10 cc of contrast delivered to obtain access. 8:59:03 Left subclavian vein accessed with 4Fr Micropuncture. 9:00:42 Left subclavian vein accessed with 4Fr Micropuncture. 9:06:31 Left subclavian vein accessed with 7Fr Peel Away Sheath. 9:06:35 Left subclavian vein accessed with 7Fr Peel Away Sheath. 9:06:42 Ventricular lead inserted and advanced. 9:06:44 Atrial lead inserted and advanced. 9:08:33 Ventricular lead positioned. 9:13:58 Atrial lead positioned. 9:15:12 Ventricular lead tested. 9:15:14 Atrial lead tested. 9:17:19 PPM Dual was attached to lead(s) and inserted into pocket. 9:17:22 Device pocket was irrigated with Ancef. 9:17:25 Atrial lead attachment was completed with 2-0 silk. 9:17:28 Ventricular lead attachment was completed with 2-0 silk. 9:18:58 Parameters-- Generator: Mode: DDDR. Lower Rate: 60bpm. Upper Rate: 120bpm. 9:21:06 Parameters--Atrial P/R Wave: 1.7-2.9 AFmV. Current: namA; Threshold: Renetta; Impedence: 576OHMS. 9:21:34 Parameters--Ventricular P/R Wave: 7.9mV. Current: 0.1mA; Threshold: 0.2V; Impedence: 1149OHMS. 9:21:45 Subcutaneous closure was completed with 2-0 vicryl. 9:21:49 Skin closure was completed with 35mm Mary. 9:21:58 Lt Chest incision was dressed with 4 x 4 and Tegaderm. 9:22:02 Procedure ended.(Physican Out) 9:26:03 Fluoroscopy time 03.90 minutes. :26:09 Fluoroscopy dose: 150.14 mGy 9::09 Flurop Dose total: 150.14 9:26:12 Contrast amount:Isovue 300 10ml. 9:26:14 Sharps counted by scrub and verified by R.N. 9:26:36 Insertion/operative site no bleeding no hematoma. 9:26:52 Post Procedure Pulses reassessed and unchanged 9:26:54 Post-procedure physical assessment completed. ASA score P 2 - A patient with mild systemic disease as per James Alvarado MD. 9:26:58 Post procedure rhythm: paced 9:27:01 Estimated blood loss: 5 ml 9:27:02 Post procedure instruction explained to patient.Patient verbalizes understanding. 9:27:02 Patient needs reinforcement of post procedure teaching. 9:28:37 Procedure type changed to Cath procedure, Diagnostic procedure, PPM/ICD, PPM Dual Implant, Miscellaneous Procedures, Moderate Sedation up to 30 minutes 9:29:22 Procedure and supply charges have been captured, reviewed, submitted and are correct. 9:29:24 Procedure Complication : No complications 9:29:26 Vital chart was stopped 9:29:26 See physician's report for complete and final results. 9:29:28 Report given to Pre/Post Procedure Room. 9:29:31 Patient transfered to Pre/Post Procedure Room with Stretcher. 9:29:32 Procedure ended. 9:29:32 Full Disclosure recording stopped 9:29:39 End room use (Document Last) Device Usage Item Name Manufacture Quantity Catalog Hospital Part Current Minima l Lot# / Serial# Number Charge Number Stock Stock Code Immobilizer Cardinal 1 [id number] 5 Extra Large Health Peak Medtronic 1 [id number] [id number] 5 PlasmaBlade 3.0S ([id number]) Stapler Skin Unknown 1 PMW35 [id number] [id number] [id number] 5 35W Proximate Plus (PMW35) 2-0 Vicryl Ethicon 1 [id number] 439280 [id number] [id number] 5 Plus [id number] Medtronic Medtronic 1 5076-52 [id number] 5 [id number] 5076-52 PPM EXP:2018-09-20 Lead Medtronic Medtronic 1 4074-58 [id number] 221939 5 EXP: 2018-08-244-58 PPM [id number] Lead Medtronic Medtronic 1 A2DR01 [id number] 5 EXP: 2018-06-09 Advisa MRI [id number] PPM Dual Generator A2DR01 MICROPUNCTURE [facility] 2 [id number] [id number] [id number] 5 4FR [place] ([id number]) [facility] [id number] 6668 [id number] 5 3-Way Large Bore ([id number]) Signature Audit [place] Stage Time Signature Unsigned Intra-Procedure 01/26/2017 Blade Wheeler 9:30:59 AM RT(R) Signatures Monitor : Blade Wheeler RT Signature : Date : Time : [address] [id number]
[2017-01-26 07:29] VITALS: BP 123/77; BMI 38.0
[~2017-01-26 07:32] MED LIST changes: +BAYER CHEWABLE81 MG PO; +PLAVIX75 MG PO
[2017-01-26 08:03] LABS: ANION GAP 12.9 mmol/L (8-16); CALCIUM 9.1 mg/dL (8.5-10.1); CARBON DIOXIDE 26.7 mmol/L (21.0-32.0); CREATININE - SERUM 1.2 mg/dL (0.6-1.3); POTASSIUM - SERUM 4.6 mmol/L (3.5-5.1)
[2017-01-26 08:07] LABS: HEMOGLOBIN 14.1 g/dL (13.5-17.5); MCH 32.4 pg (26.0-34.0); MCHC 33.6 g/dL (31.0-37.0); MCV 96.6 fL (80.0-100.0); MEAN PLATELET VOLUME 10.2 fL (7.4-10.4); RBC 4.35 10x6/uL (4.20-6.10); RDW 13.3 % (11.5-14.5); WBC 6.3 10x3/uL (4.8-10.8)
[2017-01-26 08:18] LABS: APTT 28.9 SECONDS (22.8-39.4); INR 1.03 (0.85-1.17); PROTIME 13.1 SECONDS (11.6-15.0)
--- NOTE | 2017-01-26 09:45 | NUR ---
0929 RECIEVED TO ROOM VIA STRETCHER FROM FIRER ELECTRIC LOCOMOTIVE WITH PACE MAKER SITE TO L/CHEST WALL CDI PRESSURE DRESSING IN PLACE. L/ARM TO SLING PAIN IS DENIED
--- NOTE | 2017-01-26 10:15 | NUR ---
[address] REMAINS IN PLACE TO L/CHEST NO BLEEDING NO HEMATOMA NOTED. L/ARM TO SLING. VSS WITH NO DISTRESS NOTED RATE OF A FIB AT 71
--- NOTE | 2017-01-26 10:30 | NUR ---
0930 SANDWICH AND SODA TO BEDSIDE WITH NAUSEA DENIED. NO DISTRESS NOTED
--- NOTE | 2017-01-26 10:47 | NUR ---
DR KAUR AT BEDSIDE SPEAKING WITH PATIENT
--- NOTE | 2017-01-26 10:55 | NUR ---
1050 REPORT AND CARE FROM JANAY STILES RN. PT SITTING UP IN BED, HAS CUCA SANDWICH AND PO FLUIDS WITH NO C/O. PRESSURE DRESSING CDI TO LEFT UPPER CHEST, NO BLEEDING OR HEMATOMA NOTED. REQUESTS URINAL AND THIS PROVIDED. ATRIAL FIBRILLATION WITH RATE OF 85. PT DENIES ANY C/O AT THIS TIME. CALL LIGHT IS IN REACH.
--- NOTE | 2017-01-26 11:14 | NUR ---
PT SLEEPING, RR EVEN AND UNLABORED. VSS, CALL LIGHT IN REACH.
--- NOTE | 2017-01-26 11:44 | NUR ---
PT SLEEPING, AWAKENS EASILY. PRESSURE DRESSING TO LEFT UPPER CHEST IS CDI, NO BLEEDING OR HEMATOMA NOTED. PT DENIES ANY C/O PAIN OR NAUSEA. CALL LIGHT IS IN REACH.
--- NOTE | 2017-01-26 12:00 | NUR ---
REPORT CALLED TO BILLY. PT TRANSFERRED TO ROOM 2121 VIA STRETCHER.
[2017-01-26 12:26] VITALS: BP 109/58; Ht 182.9 cm; Wt 127.0 kg
--- NOTE | 2017-01-26 12:30 | NUR ---
PT TO ROOM ALERT AND ORIENTED. LEFT CHEST INCISION NOTED DRESSING CDI. VS ARE STABLE. ADMISSION COMPLETE.
[2017-01-26 17:17] VITALS: BP 146/82
--- NOTE | 2017-01-26 17:42 | NUR ---
PT SITTING UP IN BED DENIES NEEDS. REQUESTED READING MATERIALS, GIVEN. WILL CONT TO MONITOR
--- NOTE | 2017-01-26 19:27 | NUR ---
PT RESTING IN BED WATCHING TV. PT IS AAO X4. DENIES ANY NEEDS. NO S/S OF DISTRESS. WILL CPOC
[2017-01-26 21:10] VITALS: BP 96/52
--- NOTE | 2017-01-26 22:10 | NUR ---
PT C/O PAIN IN LEFT SHOULDER FROM PACEMAKER PLACEMENT. PT GIVEN ORDERED PAIN MEDS. PT DENIES ANY OTHER NEEDS AT THIS TIMES. NO S/S OF DISTRESS. WILL CPOC
[2017-01-27 00:10] VITALS: BP 101/59
[2017-01-27 05:11] VITALS: BP 135/75
--- NOTE | 2017-01-27 07:30 | NUR ---
RECEIVED PT IN BED AAOX4 RESP UNLABORED DRSG C/D/I TO LEFT UPPER CHEST AT PACEMAKER PLACEMENT SLING INTACT TO LEFT ARM NAD NOTED
[2017-01-27 08:06] VITALS: BP 116/76
[2017-01-27] MEDS ORDERED: KEFLEX500 MG PO (08:16)
--- NOTE | 2017-01-27 10:45 | NUR ---
REVIEWED DISCHARGE INSTRUCTIONS WITH PT STTES UNDERSTANDING COPY GIVEN DCD SALINE LOCK TO LEFT WRIST WITH IV CATHETER INTACT SITE FREE OF REDNESS OR EDEMA PT DISCHARGED HOME IN STABLE CONDITION WITH ALL PERSONAL BELONGINGS LEFT UNIT VIA W/C
== END 2017-01-27 10:45 | disposition home or self-care (01) ==
LOC: D.CATH 07:32 → D.M2 12:00 → D.CATH 01-27 10:45
PROVIDERS: Internal Medicine Cardiovascular Disease
DX: I49.5 Sick sinus syndrome (principal); I48.91 Unspecified atrial fibrillation; I25.10 Atherosclerotic heart disease of native coronary artery without angina pectoris; I10 Essential (primary) hypertension; Z01.812 Encounter for preprocedural laboratory examination

== ENCOUNTER 2017-03-01 05:48 | Outpatient (CLI) | payer MEDICARE ==
[~2017-03-01] VITALS: Ht 182.9 cm; Wt 127.3 kg
--- NOTE | ~2017-03-01 | HEMODYNAMI ---
PATIENT:WAYNE GUTIERREZ SR MEDICAL RECORD: [id number] : 52 LOCATION:[facility] ADMISSION DATE: 03/01/17 Generatedon:03/01/20178:20 Patient name: WAYNE GUTIERREZ Patient #: [id number] : 1950 Date of study: 03/01/2017 Page: Of Hemodynamic Procedure Report Patient Data Patient Demographics Procedure consent was obtained First Name: WAYNE Gender: Male Last Name: BRENDA Suffix: [facility] Initial: A : 1950 Patient #: [id number] Age: 66 year(s) Race: SSN: [id number] Additional ID: [id number] Contact details Address: [address] [place] [address] [place] State: [place] City: [place] Zip code: [address] Past Medical History Allergies: No known allergies Admission Admission Data Admission Date: 03/01/2017 Admission Time: 5:48 Lab Results Lab Result Date: 03/01/2017 Lab Result Time: 0:00 Biochemistry Name Units Result Min Max BUN mg/dl 16 --(---*)-- 7 18 Creatinine mg/dl 1 --(--*-)-- 0.6 1.3 CBC Name Units Result Min Max Hemoglobin g/dl 14.2 --(*---)-- 13.5 17.5 Procedure Procedure Types Cath Procedure Diagnostic Procedure Cardioversion BOBY Procedure Description Procedure Date Procedure Date: 03/01/2017 Procedure Start Time: 7:32 Procedure Staff Name Function Eleanor Alvarado RT Monitor Ricky Mendez MD Additional personnel Lyndon Roy Recycling Specialist James Alvarado MD Performing Physician Phillip Allen RN Nurse Glendy Garcia RT Monitor Procedure Data Cath Procedure Fluoroscopy Diagnostic fluoroscopy Total fluoroscopy Time: 0 time: 0 min min Diagnostic fluoroscopy Total fluoroscopy dose: 0 dose: 0 mGy mGy Contrast Material Contrast Material Type Amount (ml) Isovue 300 0 Estimated blood loss: 0 ml Procedure Complications No complications Procedure Medications Medication Administration Route Dosage 0.9% NaCl I.V. 100 ml/hr Oxygen NC 3 l/min unlisted medication P.O. 30 ml unlisted medication P.O. 20 ml Refer to Anesthesia Notes for Sedation Medications Hemodynamics Rest HGB: 14.2 (g/dl) Heart Rate: 78 (bpm) Snapshots Pre Cath Intra NCS Post Cath Vital Signs Time Heart Resp SPO2 etCO2 NIBP (mmHg) Rhythm Pain Sedation Rate (ipm) (%) (mmHg) Status Level (bpm) 7:43:14 81 19 99 21.3 112/86(105) NSR 0 (11) 10(A) , No pain 7:47:53 77 16 100 20.5 130/84(108) NSR 0 (11) 10(A) , No pain 7:53:39 84 13 100 11.4 136/88(122) NSR 0 (11) 10(A) , No pain 7:58:23 79 10 100 18.2 141/98(117) NSR 0 (11) 10(A) , No pain 8:08:38 91 21 100 10.6 125/80(103) NSR 0 (11) 6(A) , No pain 8:13:21 88 28 95 2.2 140/101(125) NSR 0 (11) 10(A) , No pain Medications Time Medication Route Dose Verified Delivered Reason Notes Effectivene ss by by 7:46:31 0.9% NaCl I.V. 100 Phillip Phillip Per ml/hr Alejandro arnold RN RN 7:46:44 Oxygen NC 3 Phillip Phillip Per l/min Alejandro arnold RN RN 8:05:47 maalox P.O. 30 ml Phillip James Per Alejandro arnold RN 8:06:24 viscous P.O. 20 ml Phillip James Per lidocaine Alejandro Alvarado MD physician RN 8:06:38 Refer to Phillip Fisher for Anesthesia Alejandro Allen sedation Notes for RN RN Sedation Medications Procedure Log Time Note 7:34:00 Phillip Allen RN sent for patient. Start room use. 7:34:01 Time tracking: Regular hours 7:34:05 Plan of Care:Hemodynamics will remain stable., Cardiac rhythm will remain stable., Comfort level will be maintained., Respiratory function will remain adequate., Patient/ family verbilizes understanding of procedure., Procedure tolerated without complication., Recovers from procedure without complications.. 7:37:48 Patient received from Pre/Post Procedure Room to CCL 1 Alert and oriented. Tansferred to table in Supine position. 7:37:49 Correct patient and procedure confirmed by team. 7:37:49 Warm blankets applied, and edda hugger turned on for patient comfort. 7:37:51 Signed procedure consent form obtained from patient. 7:37:59 ECG and BP/O2 sat monitors applied to patient. 7:38:01 Full Disclosure recording started 7:42:09 Vital chart was started 7:42:10 Baseline sample Acquired. 7:42:15 Rhythm: atrial fibrillation 7:42:40 H&P Date Dictated: 02/21/2017 Within 30 days and on chart., H&P Addendum completed by physician on day of procedure. (MUST COMPLETE FOR ALL OUTPATIENTS). 7:42:42 Pre-op teaching completed and patient verbalized understanding. 7:42:42 Pre-procedure instructions explained to patient. 7:42:44 Family in waiting room. 7:42:45 Patient NPO since Midnight. 7:42:50 Is the patient allergic to Iodine/contrast media? No. 7:42:55 Was the patient premedicated? No 7:42:56 Is patient on blood thinner?Yes 7:43:01 ACC The patient was administered the following blood thiners within the last 24 hours: ACCPlavix, Xarelto 7:43:08 Patient diabetic? No. 7:43:12 Previous problem with sedation/anesthesia? No ? 7:43:14 Snore? Yes 7:44:10 Ricky Mendez MD present and monitoring patient for TIVA. 7:44:14 Lyndon Roy Heat Treatment Technician present for BOBY. 7:45:17 Quick combo pads placed on patients chest and back. 7:46:31 0.9% NaCl 100 ml/hr I.V. was administered by Phillip Allen RN; Per physician; 7:46:44 Oxygen 3 l/min NC was administered by Phillip Allen RN; Per physician; 7:47:03 Sleep apnea? Yes 7:47:04 Deviated septum? No 7:47:05 Opens mouth fully? Yes 7:47:06 Sticks out tongue? Yes 7:47:08 Airway obstruction? No ? 7:47:12 Dentures? No ? 7:47:18 Pre procedure: right dorsailis pedis pulse 2+ Normal; easily identifiable; not easily obliterated 7:47:20 Pre procedure: left dorsailis pedis pulse 2+ Normal; easily identifiable; not easily obliterated 7:47:23 Patient pain scale 0/10 ?. 7:47:30 IV patent on arrival in left forearm with 0.9% NaCl at [facility]. 7:48:41 Lab Result : Hemoglobin 14.2 g/dl 7:48:41 Lab Result : Creatinine 1 mg/dl 7:48:41 Lab Result : BUN 16 mg/dl 7:48:44 Lab results completed and on chart. 7:48:54 Alarms reviewed by R. N. 7:48:55 Sharps counted by scrub and verified by R.N. 7:59:35 Physician arrived 7:59:36 --------ALL STOP TIME OUT------ 7:59:37 Final Timeout: patient, procedure, and site verified with staff and physician. All members of the team are in agreement. 7:59:43 Mid Chest site verified by team. 7:59:47 Physical assessment completed. ASA score P 2 - A patient with mild systemic disease as per James Alvarado MD. 7:59:51 Sedation plan: IV Moderate Sedation Medication:Versed, Fentanyl 8:02:15 BOBY started. 8:05:47 maalox 30 ml P.O. was administered by James Alvarado MD; Per physician; 8:06:24 viscous lidocaine 20 ml P.O. was administered by James Alvarado MD; Per physician; 8:06:38 Refer to Anesthesia Notes for Sedation Medications was administered by Phillip Allen RN; for sedation; 8:09:13 BOBY completed. 8:09:56 Defibrillator synced and charged to 200 Joules. 8:10:06 Shock delivered. 8:10:50 Dr. Alvarado used paddles to shock patient; first attempt unsuccessful 8:10:53 Defibrillator synced and charged to 300 Joules. 8:11:00 Shock delivered. 8:11:24 Unsuccessful cardioversion. 8:11:50 Procedure ended.(Physican Out) 8:12:09 Fluoroscopy time 00.00 minutes. 8:12:15 Fluoroscopy dose: 0 mGy 8:12:15 Flurop Dose total: 0 8:12:18 Contrast amount:Isovue 300 0ml. 8:12:21 Sharps counted by scrub and verified by R.N. 8:12:25 Insertion/operative site no bleeding no hematoma. 8:12:30 Post Procedure Pulses reassessed and unchanged 8:12:33 Post procedure rhythm: unchanged. 8:12:36 Estimated blood loss: 0 ml 8:12:38 Patient needs reinforcement of post procedure teaching. 8:12:38 Post procedure instruction explained to patient.Patient verbalizes understanding. 8:12:48 Procedure and supply charges have been captured, reviewed, submitted and are correct. 8:12:53 Procedure Complication : No complications 8:12:56 See physician's report for complete and final results. 8:12:56 Vital chart was stopped 8:13:00 Report given to Pre/Post Procedure Room. 8:13:02 Patient transfered to Pre/Post Procedure Room with Stretcher. 8:13:15 End room use (Document Last) 8:19:47 Full Disclosure recording stopped Signature Audit [place] Stage Time Signature Unsigned Intra-Procedure 03/01/2017 Glendy Garcia 8:20:40 AM RT(R) Signatures Monitor : Eleanor Signature : Jenny RT Date : Time : Monitor : Glendy Garcia RT Signature : Date : Time : [facility] [address] [place] [address]
[~2017-03-01 05:48] MED LIST changes: +KEFLEX500 MG PO
[2017-03-01 06:26] VITALS: BP 162/83; Ht 182.9 cm; Wt 127.3 kg
[2017-03-01 06:32] LABS: BASOPHILS 0.5 % (0-2); EOSINOPHILS 1.9 % (0-7); HEMATOCRIT 42.3 % (42.0-54.0); HEMOGLOBIN 14.2 g/dL (13.5-17.5); IMMATURE GRANULOCYTES 0.6 % (0-5); LYMPHOCYTES 19.4 % (15-50); MCH 32.9 pg (26.0-34.0); MCHC 33.6 g/dL (31.0-37.0); MCV 97.9 fL (80.0-100.0); MEAN PLATELET VOLUME 9.9 fL (7.4-10.4); MONOCYTES 9.9 % (2-11); NEUTROPHILS 67.7 % (40-80); PLATELET COUNT 180 10x3/uL (130-400); RBC 4.32 10x6/uL (4.20-6.10); WBC 6.2 10x3/uL (4.8-10.8)
[2017-03-01 06:40] LABS: CALC OSMOLALITY 279 mosm/kg (275-300); CALCIUM 9.2 mg/dL (8.5-10.1); CARBON DIOXIDE 25.8 mmol/L (21.0-32.0); CHLORIDE - SERUM 103 mmol/L (98-107); GLUCOSE 115 mg/dL (74-106); INR 2.01 (0.85-1.17); POTASSIUM - SERUM 4.3 mmol/L (3.5-5.1); PROTIME 22.2 SECONDS (11.6-15.0); SODIUM 139 mmol/L (136-145); UREA NITROGEN 16 mg/dL (7-18); eGFR NON AFRICAN AMERICAN 80 mL/min (90-120)
== END 2017-03-01 10:05 | disposition home or self-care (01) ==
LOC: D.CATH 05:48
PROVIDERS: Internal Medicine Cardiovascular Disease
DX: I48.91 Unspecified atrial fibrillation (principal); Z01.812 Encounter for preprocedural laboratory examination